=== PATIENT | male | born 1970 | race Caucasian/White ===

== ENCOUNTER 2018-03-12 12:53 | Emergency (ER) | payer OTHER ==
[~2018-03-12] VITALS: Ht 185.4 cm; Wt 86.7 kg
[2018-03-12 13:00] VITALS: BP 134/72
[2018-03-12] MEDS ORDERED: DIPH,PERTUSS(ACELL),TET VAC/PF 0.5 ML IM-VACC ONE ×2 (13:30→14:00)
[2018-03-12] MEDS ORDERED: L.E.T SOLUTION TP ONE (13:52)
== END 2018-03-12 14:36 | disposition home or self-care (01) ==
LOC: ED 14:28
DX: S01.01XA Laceration without foreign body of scalp, initial encounter (principal); X58.XXXA Exposure to other specified factors, initial encounter; Y93.89 Activity, other specified; Y92.89 Other specified places as the place of occurrence of the external cause; Y99.8 Other external cause status
CPT/HCPCS: 12032; 90471; 90715